=== PATIENT | male | born 1965 | race Caucasian/White ===

== ENCOUNTER 2017-01-20 15:41 | Emergency (ER) | payer OTHER ==
[2017-01-20 17:11] LABS: BASOPHIL 1.1 % (0-2); EOSINOPHIL 0.4 % (0-5); HCT 39.7 % (42.0-52.0); HGB 14.5 g/dl (13.2-18.0); LYMPHOCYTE 22.9 % (15-48); MCH 30.9 pg (25.0-31.0); MCHC 36.5 g/dL (32.0-36.0); MCV 84.5 fL (78.0-100.0); MONOCYTE 11.8 % (0-12); MPV 9.8 fL (6.0-9.5); NEUTROPHIL 63.8 % (41-80); PLT 306 K/uL (150-400); RDW 16.2 % (11.5-14.0); WBC 4.8 K/uL (4.0-10.5)
[2017-01-20 17:23] LABS: ACETAMINOPHEN (TYLENOL) 7.2 ug/mL (10.0-30.0)
[2017-01-20 17:24] LABS: ALBUMIN 4.7 g/dL (3.5-5.0); BILIRUBIN - TOTAL 0.3 mg/dL (0.1-1.0); CREATININE 0.7 mg/dL (0.7-1.2); GLOBULIN (CALCULATION) 2.8 g/dL (2.2-4.2); TOTAL PROTEIN 7.5 g/dL (6.4-8.3)
== END 2017-01-20 20:07 | disposition home or self-care (01) ==
LOC: FER 15:41
PROVIDERS: Internal Medicine
DX: S09.90XA Unspecified injury of head, initial encounter (principal); S29.011A Strain of muscle and tendon of front wall of thorax, initial encounter; S46.912A Strain of unspecified muscle, fascia and tendon at shoulder and upper arm level, left arm, initial encounter; F10.10 Alcohol abuse, uncomplicated; K21.9 Gastro-esophageal reflux disease without esophagitis; J44.9 Chronic obstructive pulmonary disease, unspecified; F17.200 Nicotine dependence, unspecified, uncomplicated; Z88.0 Allergy status to penicillin; Z98.61 Coronary angioplasty status; Y90.2 Blood alcohol level of 40-59 mg/100 ml
CPT/HCPCS: 36415; 36600; 70450; 71010; 72125; 80053; 82150; 82803; 83690; 84484; 85025; 93005; G0480; J1885; J2060; J2405; J3411; J3475